=== PATIENT | female | born 1940 | race Caucasian/White ===

== ENCOUNTER 2017-06-03 14:26 | Emergency (ER) | payer OTHER ==
[~2017-06-03] VITALS: Ht 152.4 cm; Wt 65.8 kg
[2017-06-03 14:45] VITALS: BP_SYST 224
--- NOTE | 2017-06-03 15:31 | NUR ---
Patient to ER bed 4 to gown for evaluation. Side rails up. Report given to Madi NORTH.
--- NOTE | 2017-06-03 15:35 | NUR ---
ER at bedside examining patient.
--- NOTE | 2017-06-03 15:40 | NUR ---
Pt presents to ER s/p [facility] fall. Pt states that she was cleaning around her home, when she tripped and fell, hitting her L clavicle. L clavicle is bruised, no lacerations, pt denies KO. Pt states pain is 8/10. Pt denies pain elsewhere. Pt in no acute distress, AOX4, NKDA, brought in by family.
--- NOTE | 2017-06-03 15:50 | NUR ---
Radiology at bedside for xray.
[2017-06-03] MEDS ORDERED: MORPHINE 4 MG/ML INJ. SYRINGE IM ONE (16:00)
[2017-06-03] MEDS: MORPHINE SULFATE 10 MG/ML VIAL IM ONE (16:24)
--- NOTE | 2017-06-03 16:28 | NUR ---
Pt medicated for pain level 12/27. Pt tolerated well; will continue to monitor.
--- NOTE | 2017-06-03 16:45 | NUR ---
Shoulder immobilizer applied to pt's L arm. Pt tolerated well. Pt educated on worsening s/s to monitor for.
[2017-06-03 16:53] VITALS: BP_SYST 167
--- NOTE | 2017-06-03 16:53 | NUR ---
Patient given written and verbal discharge instructions and verbalizes understanding. ER MD discussed with patient the results and treatment provided. Patient in stable condition. ID arm band removed. Rx of Motrin & Clatonia given. Patient educated on pain management and to follow up with PMD. Pain Scale 3/10. Opportunity for questions provided and answered.
== END 2017-06-03 16:53 | disposition home or self-care (01) ==
LOC: SED 14:26
DX: S42.032A Displaced fracture of lateral end of left clavicle, initial encounter for closed fracture (principal); I10 Essential (primary) hypertension; W19.XXXA Unspecified fall, initial encounter; Y93.89 Activity, other specified; Y92.89 Other specified places as the place of occurrence of the external cause; Y99.8 Other external cause status
CPT/HCPCS: 73000; 96372; 99284; J2270